=== PATIENT | male | born 1955 | race Caucasian/White ===

== ENCOUNTER → 2017-11-28 | Outpatient (REF) | payer BC ==
[2017-11-28 17:33] LABS: INR 0.97; PARTIAL THROMBOPLASTIN TIME 31.3 SECONDS (26.8-37.9)
[2017-11-28 21:16] LABS: APPEARANCE, URINE MANUAL CLEAR (CLEAR); COLOR, URINE MANUAL LT YELLOW (YELLOW)
[2017-11-28 21:17] LABS: BILIRUBIN, URINE MANUAL NEGATIVE (NEGATIVE); BLOOD URINE MANUAL NEGATIVE (NEGATIVE); GLUCOSE, URINE (UA) MANUAL NEGATIVE (NEGATIVE); KETONE, URINE MANUAL NEGATIVE (NEGATIVE); MICROSCOPIC INDICATED? MAN NO (NO); NITRITE, URINE MANUAL NEGATIVE (NEGATIVE); PROTEIN, URINE MANUAL NEGATIVE (NEGATIVE); UROBILINOGEN, URINE MANUAL NORMAL (NORMAL)
[2017-11-28 21:18] LABS: LEUKOCYTE ESTERASE, URINE MAN NEGATIVE (NEGATIVE)
== END ==
LOC: M LAB REF 16:48
DX: Z01.818 Encounter for other preprocedural examination (principal); M25.551 Pain in right hip
CPT/HCPCS: 85610

== ENCOUNTER → 2018-04-02 | Outpatient (CLI) | payer BC | LOC: M RAD 08:55 | DX: G45.9 Transient cerebral ischemic attack, unspecified (principal) ==

== ENCOUNTER 2020-09-06 10:23 | Emergency (ER) | payer BC, MEDICARE, OTHER ==
[~2020-09-06] VITALS: Ht 175.3 cm; Wt 79.7 kg
[~2020-09-06 10:23] MED LIST: /AUGM875TA OR; CELE1CAP4 OR; COLA100C2 OR; No Historical Meds; PERC5TAB8 OR; PERC7.5T8 OR
[2020-09-06] MEDS ORDERED: NAPR220C14 PO (10:34)
[2020-09-06] MEDS ORDERED: OMEP-221 (10:34)
[2020-09-06 11:37] LABS: BASO # 0.1 10^3/uL (0.0-0.2); BASO % 0.8 % (0.0-1.0); EOS # 0.3 10^3/uL (0.0-0.5); EOS % 4.4 % (0.0-3.0); HEMOGLOBIN 14.5 g/dl (13.5-17.5); LYMPH # 2.5 10^3/uL (1.5-5.0); LYMPH % 33.1 % (24.0-44.0); MEAN CORPUSCULAR HEMOGLOBIN 30.9 pg (27.0-33.0); MEAN CORPUSCULAR HGB CONC 34.5 g/dl (32.0-36.5); MEAN CORPUSCULAR VOLUME 89.6 fl (80.0-96.0); MONO # 0.6 10^3/uL (0.0-0.8); MONO % 7.7 % (0.0-5.0); NEUTROPHILS % 53.6 % (36.0-66.0); PLATELET COUNT, AUTOMATED 171 10^3/uL (150-450); RED BLOOD COUNT 4.69 10^6/uL (4.30-6.10); WHITE BLOOD COUNT 7.5 10^3/uL (4.0-10.0)
[2020-09-06 11:59] LABS: BLOOD UREA NITROGEN 21 MG/DL (7-18); CALCIUM LEVEL 8.6 MG/DL (8.8-10.2); CARBON DIOXIDE LEVEL 26 MEQ/L (21-32); CHLORIDE LEVEL 107 MEQ/L (98-107); CPK CREATINE PHOSPHOKINASE 69 U/L (39-308); CREATININE FOR GFR 1.21 MG/DL (0.70-1.30); GLOMERULAR FILTRATION RATE > 60.0 (>49); GLUCOSE, FASTING 103 MG/DL (70-100); POTASSIUM SERUM 4.4 MEQ/L (3.5-5.1); SODIUM LEVEL 138 MEQ/L (136-145)
--- NOTE | 2020-09-06 12:02 | REP ---
INDICATION: left heel pain. COMPARISON: None. FINDINGS: The joint spaces are symmetric and relatively well maintained with the exception of the 1st metatarsophalangeal joint.. There is no evidence of acute fracture or destructive osseous lesion. Postoperative changes are seen involving the 1st metatarsophalangeal joint. Two fixation pins are seen in the distal 1st metatarsal. Moderate to severe asymmetric 1st metatarsophalangeal joint space narrowing is seen with prominent marginal osteophytosis. IMPRESSION: No acute disease <Electronically signed by Alfie Schultz > 09/06/20 [id number]
--- NOTE | 2020-09-06 12:03 | REP ---
INDICATION: r/o dvt LLE. COMPARISON: None. TECHNIQUE: Multiple ultrasonographic images of the deep venous structures of the left thigh were obtained from the common femoral vein to the popliteal vein along with Doppler interrogation and color flow Doppler images. FINDINGS: There is no abnormal echogenic material seen within any of the visualized deep venous structures that would suggest acute thrombosis. Coaptation is unremarkable throughout. Doppler interrogation shows an expected response to respiratory variability and augmentation. The color flow images show what appears to be a normal vascular pattern throughout. IMPRESSION: There is no ultrasonographic evidence of deep venous thrombosis involving any of the visualized deep venous structures of the left thigh, as described above. <Electronically signed by Alfie Schultz > 09/06/20 1200
[2020-09-06] MEDS ORDERED: LEVO750T13 PO ×2 (13:42→13:55)
[2020-09-06] MEDS ORDERED: BOOSTRIX/ADACEL VACCINE (DIPHTH/PERTUSS/ACELL/TETANUS) 0.5ML SYR IM ONE (13:45)
[2020-09-06 13:50] VITALS: BP 149/86
== END 2020-09-06 13:57 | disposition home or self-care (01) ==
LOC: M ED 10:23
DX: L02.416 Cutaneous abscess of left lower limb (principal); S86.912A Strain of unspecified muscle(s) and tendon(s) at lower leg level, left leg, initial encounter; S91.342A Puncture wound with foreign body, left foot, initial encounter; X58.XXXA Exposure to other specified factors, initial encounter; Y92.89 Other specified places as the place of occurrence of the external cause; K21.9 Gastro-esophageal reflux disease without esophagitis; Z79.899 Other long term (current) drug therapy; Z88.1 Allergy status to other antibiotic agents; Z88.2 Allergy status to sulfonamides; F12.20 Cannabis dependence, uncomplicated; Z87.891 Personal history of nicotine dependence

== ENCOUNTER → 2023-09-05 | Outpatient (CLI) | payer MEDICARE, OTHER ==
[~2023-09-05] MED LIST changes: +LEVO1TAB40 PO; +NAPR220C14 PO; +OMEP40CA5
== END ==
LOC: M RAD 10:24
PROVIDERS: ATTEND Internal Medicine
DX: I73.9 Peripheral vascular disease, unspecified (principal)

== ENCOUNTER → 2023-10-09 | Outpatient (CLI) | payer MEDICARE | LOC: M RAD 10:14 | PROVIDERS: ATTEND Internal Medicine | DX: R91.1 Solitary pulmonary nodule (principal); J43.9 Emphysema, unspecified; K44.9 Diaphragmatic hernia without obstruction or gangrene; I25.84 Coronary atherosclerosis due to calcified coronary lesion ==

== ENCOUNTER 2023-12-26 07:34 | Day surgery (SDC) | payer MEDICARE ==
[~2023-12-26] VITALS: Ht 175.3 cm; Wt 70.1 kg
[~2023-12-26 07:34] MED LIST changes: +CIAL5TAB PO; +OMEP40CA4 PO; +ROSU10TA61 PO
[2023-12-26] MEDS: NS 1,000 ML IV ONE (07:54)
[2023-12-26 09:40] VITALS: TEMP 98
[2023-12-26 10:05] VITALS: BP 127/74; O2SAT 95
== END 2023-12-26 10:20 | disposition home or self-care (01) ==
LOC: M OPP 07:34
PROVIDERS: ATTEND Internal Medicine Gastroenterology
DX: Z12.11 Encounter for screening for malignant neoplasm of colon (principal); Z12.12 Encounter for screening for malignant neoplasm of rectum; C18.4 Malignant neoplasm of transverse colon; K57.30 Diverticulosis of large intestine without perforation or abscess without bleeding; K64.8 Other hemorrhoids; K64.4 Residual hemorrhoidal skin tags; K21.9 Gastro-esophageal reflux disease without esophagitis; N40.0 Benign prostatic hyperplasia without lower urinary tract symptoms; Z86.73 Personal history of transient ischemic attack (TIA), and cerebral infarction without residual deficits; Z79.899 Other long term (current) drug therapy; E78.00 Pure hypercholesterolemia, unspecified; Z90.49 Acquired absence of other specified parts of digestive tract; Z88.2 Allergy status to sulfonamides

== ENCOUNTER → 2024-01-03 | Outpatient (REF) | payer MEDICARE | LOC: M LAB REF 12:30 | PROVIDERS: ATTEND Internal Medicine | DX: N40.1 Benign prostatic hyperplasia with lower urinary tract symptoms (principal); C18.9 Malignant neoplasm of colon, unspecified ==

== ENCOUNTER → 2024-01-12 | Outpatient (CLI) | payer MEDICARE ==
[~2024-01-12] MED LIST changes: +GASTROGRAFIN SOLUTION 30ML ONE; +ISOVUE-370 76% 100ML VIAL ONE
== END ==
LOC: M PLAIMG 08:10
PROVIDERS: ATTEND Internal Medicine
DX: C18.9 Malignant neoplasm of colon, unspecified (principal); K57.30 Diverticulosis of large intestine without perforation or abscess without bleeding; Z96.641 Presence of right artificial hip joint
CPT/HCPCS: 74178; Q9963; Q9967

== ENCOUNTER 2024-01-22 05:48 | Inpatient (IN) | payer MEDICARE ==
[~2024-01-22] VITALS: Ht 175.3 cm; Wt 70.6 kg
[2024-01-22] VITALS (8 sets, daily range): BP systolic 139–144; BP diastolic 80–88; TEMP 97.7–98.7; O2SAT 92–97
[~2024-01-22 05:48] MED LIST changes: -GASTROGRAFIN SOLUTION 30ML ONE; -ISOVUE-370 76% 100ML VIAL ONE
[2024-01-22] MEDS: LR 1,000 ML IV SCH (07:13)
[2024-01-22] MEDS ORDERED: ONDANSETRON 4MG 2ML VIAL As Ordered ONE (07:14)
[2024-01-22] MEDS ORDERED: ROCURONIUM BROMIDE 50MG/5ML VIAL As Ordered ONE (07:14)
[2024-01-22] MEDS ORDERED: LIDOCAINE 2% 100MG/5ML SDV (FOR ANES.) As Ordered ONE (07:14)
[2024-01-22] MEDS ORDERED: propofoL 200 MG/20 ML VIAL As Ordered ONE (07:14)
[2024-01-22] MEDS ORDERED: MIDAZOLAM INJ 2MG/2ML VIAL As Ordered ONE (07:15)
[2024-01-22] MEDS ORDERED: fentaNYL 100 MCG/2 ML INJECTION As Ordered ONE (07:15)
[2024-01-22] MEDS: ceFAZolin SOD 2 GM in IV 1 EA IV ONE (07:18)
[2024-01-22] MEDS ORDERED: METR-265 PO (07:22)
[2024-01-22] MEDS ORDERED: NEOM500T PO (07:22)
[2024-01-22] MEDS ORDERED: HOME MED LIST COMPLETE! XX SCH (07:25)
[2024-01-22] MEDS: metroNIDAZOLE 500 MG in IV 1 EA IV ONE (07:31)
[2024-01-22] MEDS ORDERED: PHENYLephrine 500MCG 5ML (100MCG/ML) SYRINGE As Ordered ONE (07:48)
[2024-01-22] MEDS ORDERED: ACETAMINOPHEN 1000MG 100ML IV BAG As Ordered ONE (08:04)
[2024-01-22] MEDS ORDERED: HYDROmorphone HCL 2MG/ML 1ML VIAL As Ordered ONE (08:23)
[2024-01-22] MEDS ORDERED: LABETALOL 100MG/20ML VIAL As Ordered ONE (10:01)
[2024-01-22] MEDS: fentaNYL 100 MCG/2 ML INJECTION IV PRN (11:21)
[2024-01-22] MEDS: ONDANSETRON 4MG 2ML VIAL IV PRN ×2 (11:21→17:14)
[2024-01-22] MEDS: oxyCODONE 5MG TAB PO PRN (11:38)
[2024-01-22] MEDS ORDERED: NORCO, ANEXSIA 5/325MG TABLET (HYDROcodone/ACETAMINOPHEN) PO PRN (11:40)
[2024-01-22] MEDS ORDERED: MORPHINE 2 MG/ML 1ML VIAL IV PRN (11:40)
[2024-01-22] MEDS ORDERED: dexmedeTOMIDine (4MCG/ML)200MCG/50ML BTL (PRECEDEX) As Ordered ONE (12:40)
[2024-01-22] MEDS: HYDROMORPHONE HCL 0.5 MG/ 0.5 ML SYRINGE IV PRN (13:35)
[2024-01-22] MEDS: PIPERACILLIN/TAZOBACTAM SOD 3.375 GM in D5W MINI-BAG PLUS 50 ML IV SCH (13:51)
[2024-01-22] MEDS: NS 1,000 ML IV SCH (14:38)
[2024-01-22] MEDS: KETOROLAC 30 MG/ML 1ML VIAL IV PRN (17:14)
[2024-01-22] MEDS: SENOKOT S TAB PO SCH (20:36)
[2024-01-22] MEDS: NORCO, ANEXSIA 5/325MG TABLET (HYDROcodone/ACETAMINOPHEN) PO PRN (20:51)
[2024-01-23] VITALS: BP 151/76; TEMP 98.1; O2SAT 93
[2024-01-23 04:17] VITALS: BP 122/74; TEMP 98.1; O2SAT 95
[2024-01-23 06:10] LABS: HEMATOCRIT 37.6 % (42.0-52.0); HEMOGLOBIN 13.6 g/dl (13.5-17.5); MEAN CORPUSCULAR HEMOGLOBIN 34.5 pg (27.0-33.0); MEAN CORPUSCULAR HGB CONC 36.2 g/dl (32.0-36.5); MEAN CORPUSCULAR VOLUME 95.4 fl (80.0-96.0); PLATELET COUNT, AUTOMATED 144 10^3/uL (150-450); RED BLOOD COUNT 3.94 10^6/uL (4.30-6.10); WHITE BLOOD COUNT 11.3 10^3/uL (4.0-10.0)
[2024-01-23 06:39] LABS: BLOOD UREA NITROGEN 14 MG/DL (9-23); CALCIUM LEVEL 7.9 MG/DL (8.3-10.6); CARBON DIOXIDE LEVEL 23 MMOL/L (20-31); CHLORIDE LEVEL 108 MMOL/L (98-107); CREATININE FOR GFR 0.96 MG/DL (0.70-1.30); GLOMERULAR FILTRATION RATE > 60.0 (>42); GLUCOSE, FASTING 82 MG/DL (74-106); POTASSIUM SERUM 3.8 MMOL/L (3.5-5.1); SODIUM LEVEL 138 MMOL/L (136-145)
[2024-01-23 08:00] VITALS: BP 142/79; TEMP 97.7; O2SAT 94
[2024-01-23] MEDS: PANTOPRAZOLE 40MG TAB (PROTONIX) PO SCH (08:28)
[2024-01-23] MEDS: ENOXAPARIN 40MG/0.4ML SYRINGE (J1650 PER 10MG) SC SCH (08:32)
[2024-01-23 12:00] VITALS: BP 121/72; TEMP 97.7; O2SAT 93
[2024-01-23 16:00] VITALS: BP 128/83; TEMP 97.7; O2SAT 98
[2024-01-23 20:00] VITALS: BP 131/81; TEMP 97.7; O2SAT 94
[2024-01-23] MEDS: RAMELTEON 8 MG TAB (ROZEREM) PO ONE (20:44)
[2024-01-24] VITALS (8 sets, daily range): BP systolic 124–178; BP diastolic 78–112; TEMP 97–98.1; O2SAT 92–95
[2024-01-24] MEDS: PROMETHAZINE 25MG/ML 1ML VIAL IV ONE (04:48)
[2024-01-24 06:38] LABS: BLOOD UREA NITROGEN 11 MG/DL (9-23); CALCIUM LEVEL 8.5 MG/DL (8.3-10.6); CARBON DIOXIDE LEVEL 22 MMOL/L (20-31); CHLORIDE LEVEL 107 MMOL/L (98-107); CREATININE FOR GFR 0.73 MG/DL (0.70-1.30); GLOMERULAR FILTRATION RATE > 60.0 (>42); GLUCOSE, FASTING 108 MG/DL (74-106); POTASSIUM SERUM 3.8 MMOL/L (3.5-5.1); SODIUM LEVEL 139 MMOL/L (136-145)
[2024-01-24 06:43] LABS: HEMATOCRIT 47.4 % (42.0-52.0); MEAN CORPUSCULAR HEMOGLOBIN 34.4 pg (27.0-33.0); MEAN CORPUSCULAR HGB CONC 36.5 g/dl (32.0-36.5); MEAN CORPUSCULAR VOLUME 94.2 fl (80.0-96.0); PLATELET COUNT, AUTOMATED 139 10^3/uL (150-450); RED BLOOD COUNT 5.03 10^6/uL (4.30-6.10); WHITE BLOOD COUNT 11.1 10^3/uL (4.0-10.0)
[2024-01-24 09:33] LABS: MAGNESIUM LEVEL 1.8 MG/DL (1.8-2.4)
[2024-01-24] MEDS: FUROSEMIDE 40MG/4ML VIAL IV ONE (16:37)
[2024-01-24] MEDS: **hydrALAZINE HCL** 25 MG TAB PO PRN (18:23)
[2024-01-24] MEDS: ROSUVASTATIN 10 MG TAB (CRESTOR) PO SCH (21:16)
[2024-01-25 05:15] VITALS: BP 146/91; TEMP 97.9; O2SAT 93
[2024-01-25 06:32] LABS: HEMATOCRIT 47.6 % (42.0-52.0); HEMOGLOBIN 17.6 g/dl (13.5-17.5); MEAN CORPUSCULAR HEMOGLOBIN 33.8 pg (27.0-33.0); MEAN CORPUSCULAR VOLUME 91.5 fl (80.0-96.0); PLATELET COUNT, AUTOMATED 196 10^3/uL (150-450); WHITE BLOOD COUNT 12.8 10^3/uL (4.0-10.0)
[2024-01-25 06:45] LABS: BLOOD UREA NITROGEN 27 MG/DL (9-23); CALCIUM LEVEL 8.6 MG/DL (8.3-10.6); CARBON DIOXIDE LEVEL 24 MMOL/L (20-31); CHLORIDE LEVEL 104 MMOL/L (98-107); CREATININE FOR GFR 1.13 MG/DL (0.70-1.30); GLOMERULAR FILTRATION RATE > 60.0 (>42); GLUCOSE, FASTING 111 MG/DL (74-106); POTASSIUM SERUM 3.8 MMOL/L (3.5-5.1); SODIUM LEVEL 136 MMOL/L (136-145)
[2024-01-25] MEDS: LR 1,000 ML IV ONE (06:53)
[2024-01-25 08:20] LABS: HEMOGLOBIN 17.3 g/dl (13.5-17.5)
[2024-01-25 12:00] VITALS: BP 121/82; TEMP 97.9; O2SAT 93
[2024-01-25 19:52] VITALS: BP 148/94; TEMP 97.9; O2SAT 93
[2024-01-26 05:53] VITALS: BP 147/94; TEMP 97.9; O2SAT 93
[2024-01-26 08:00] VITALS: BP 147/95
[2024-01-26 09:56] LABS: BLOOD UREA NITROGEN 34 MG/DL (9-23); CALCIUM LEVEL 9.1 MG/DL (8.3-10.6); CARBON DIOXIDE LEVEL 23 MMOL/L (20-31); CHLORIDE LEVEL 104 MMOL/L (98-107); CREATININE FOR GFR 1.02 MG/DL (0.70-1.30); GLOMERULAR FILTRATION RATE > 60.0 (>42); GLUCOSE, FASTING 114 MG/DL (74-106); POTASSIUM SERUM 3.6 MMOL/L (3.5-5.1); SODIUM LEVEL 139 MMOL/L (136-145)
[2024-01-26 10:16] LABS: HEMATOCRIT 49.1 % (42.0-52.0); HEMOGLOBIN 18.1 g/dl (13.5-17.5); MEAN CORPUSCULAR HEMOGLOBIN 34.1 pg (27.0-33.0); MEAN CORPUSCULAR VOLUME 92.5 fl (80.0-96.0); PLATELET COUNT, AUTOMATED 213 10^3/uL (150-450); RED BLOOD COUNT 5.31 10^6/uL (4.30-6.10); WHITE BLOOD COUNT 10.6 10^3/uL (4.0-10.0)
[2024-01-26 10:51] LABS: MEAN CORPUSCULAR HGB CONC 36.9 g/dl (32.0-36.5)
[2024-01-26 12:00] VITALS: BP 148/94; TEMP 97.7; O2SAT 98
[2024-01-26] MEDS ORDERED: HYDR-3715 PO (12:41)
[2024-01-26] MEDS ORDERED: AMLO1TAB25 PO (12:41)
== END 2024-01-26 15:30 | disposition home or self-care (01) | DRG 330 ==
LOC: M OR 05:48 → M MSPAV 14:03
PROVIDERS: ADMIT Surgery; ATTEND Surgery
PROC: 8E0W4CZ Robotic Assisted Procedure of Trunk Region, Percutaneous Endoscopic Approach (ICD-10-PCS; 2024-01-22)
PROC: 0DBF4ZZ Excision of Right Large Intestine, Percutaneous Endoscopic Approach (ICD-10-PCS; principal; 2024-01-22 07:30)
DX: C18.3 Malignant neoplasm of hepatic flexure (principal); C77.2 Secondary and unspecified malignant neoplasm of intra-abdominal lymph nodes; K21.9 Gastro-esophageal reflux disease without esophagitis; E78.5 Hyperlipidemia, unspecified; N40.0 Benign prostatic hyperplasia without lower urinary tract symptoms; D75.1 Secondary polycythemia; Z90.49 Acquired absence of other specified parts of digestive tract; Z79.899 Other long term (current) drug therapy

== ENCOUNTER → 2024-02-21 | Outpatient (CLI) | payer MEDICARE ==
[~2024-02-21] MED LIST changes: +AMLO1TAB25 PO; +HYDR-3715 PO; +METR-265 PO; +NEOM500T PO
== END ==
LOC: M IRPRO 09:08
PROVIDERS: ATTEND Internal Medicine Hematology & Oncology
DX: C18.9 Malignant neoplasm of colon, unspecified (principal)

== ENCOUNTER → 2024-03-05 | Outpatient (CLI) | payer MEDICARE ==
[~2024-03-05] MED LIST changes: +LIDOCAINE 1% MDV 20ML VIAL As Ordered ONE; +ONDA-84 PO; +PROC10TA5 PO; +ceFAZolin 2 GM/D5W 50 ML IV BAG As Ordered ONE
[2024-03-05 15:10] VITALS: TEMP 98.1
[2024-03-05 17:21] VITALS: BP 127/67; O2SAT 99
== END ==
LOC: M IRPRO 14:54
PROVIDERS: ATTEND Internal Medicine Hematology & Oncology
DX: C18.9 Malignant neoplasm of colon, unspecified (principal)
CPT/HCPCS: 36561; C1769; J0690

== ENCOUNTER → 2024-04-11 | Outpatient (CLI) | payer MEDICARE ==
[~2024-04-11] MED LIST changes: +CLAR10TA7 PO; +LIDO30CR18 TOP; -LIDOCAINE 1% MDV 20ML VIAL As Ordered ONE; +MAGICMW PO; -ceFAZolin 2 GM/D5W 50 ML IV BAG As Ordered ONE
== END ==
LOC: M RAD 10:12
PROVIDERS: ATTEND Internal Medicine Hematology & Oncology
DX: D69.6 Thrombocytopenia, unspecified (principal); C18.9 Malignant neoplasm of colon, unspecified

== ENCOUNTER → 2024-06-06 | Outpatient (REF) | payer MEDICARE ==
[~2024-06-06] MED LIST changes: +PREG50CA PO
[2024-06-06 17:49] LABS: THYROID STIMULATING HORMONE 1.201 uIU/ML (0.55-4.78)
[2024-06-06 17:50] LABS: ALBUMIN 3.6 G/DL (3.2-5.2); ALKALINE PHOSPHATASE 196 U/L (46-116); ALT/SGPT 24 U/L (7.0-40); AST/SGOT 23 U/L (<34); BILIRUBIN,TOTAL 0.5 MG/DL (0.3-1.2); BLOOD UREA NITROGEN 10 MG/DL (9-23); CALCIUM LEVEL 9.4 MG/DL (8.3-10.6); CARBON DIOXIDE LEVEL 27 MMOL/L (20-31); CHLORIDE LEVEL 109 MMOL/L (98-107); CHOLESTEROL LEVEL 135 MG/DL (<200); CHOLESTEROL RISK RATIO 2.86 (<5); CREATININE FOR GFR 0.94 MG/DL (0.70-1.30); GLOMERULAR FILTRATION RATE > 60.0 (>42); GLUCOSE, FASTING 100 MG/DL (74-106); HDL CHOLESTEROL 47.2 MG/DL (>40); HEMATOCRIT 40.2 % (42.0-52.0); HEMOGLOBIN 13.2 g/dl (13.5-17.5); MEAN CORPUSCULAR HEMOGLOBIN 32.8 pg (27.0-33.0); MEAN CORPUSCULAR HGB CONC 32.8 g/dl (32.0-36.5); NON-HDL-C 87.8 MG/DL; POTASSIUM SERUM 3.8 MMOL/L (3.5-5.1); RED BLOOD COUNT 4.02 10^6/uL (4.30-6.10); SODIUM LEVEL 141 MMOL/L (136-145); TOTAL PROTEIN 6.8 G/DL (5.7-8.2); TRIGLYCERIDES LEVEL 94 MG/DL (<150); WHITE BLOOD COUNT 6.5 10^3/uL (4.0-10.0)
[2024-06-06 17:52] LABS: FREE T4 1.24 NG/DL (0.89-1.76)
[2024-06-06 18:05] LABS: HEMOGLOBIN A1c 5.3 % (4.0-6.0)
[2024-06-06 18:28] LABS: PLATELET COUNT, AUTOMATED 49 10^3/uL (150-450)
== END ==
LOC: M SFHCADAM 10:55
PROVIDERS: ATTEND Family Medicine
DX: E78.5 Hyperlipidemia, unspecified (principal); C18.9 Malignant neoplasm of colon, unspecified; Z13.1 Encounter for screening for diabetes mellitus

== ENCOUNTER → 2024-07-09 | Outpatient (CLI) | payer MEDICARE | LOC: M ONCM 07:34 | PROVIDERS: ATTEND Dietitian, Registered | DX: C18.9 Malignant neoplasm of colon, unspecified (principal); Z71.3 Dietary counseling and surveillance; Z68.21 Body mass index [BMI] 21.0-21.9, adult ==

== ENCOUNTER → 2024-08-20 | Outpatient (CLI) | payer MEDICARE ==
[~2024-08-20] MED LIST changes: +LEVO1TAB39 PO
== END ==
LOC: M RAD 14:57
PROVIDERS: ATTEND Internal Medicine Medical Oncology
DX: C18.9 Malignant neoplasm of colon, unspecified (principal)

== ENCOUNTER → 2024-09-06 | Outpatient (REF) | payer MEDICARE ==
[2024-09-06 17:42] LABS: APPEARANCE, URINE HAZY (CLEAR); BACTERIA, URINE AUTO NEGATIVE (NEGATIVE); BILIRUBIN, URINE AUTO NEGATIVE (NEGATIVE); BLOOD, URINE BLOOD NEGATIVE (NEGATIVE); COLOR, URINE AMBER (YELLOW); GLUCOSE, URINE (UA) AUTO NEGATIVE (NEGATIVE); KETONE, URINE AUTO NEGATIVE (NEGATIVE); LEUKOCYTE ESTERASE, URINE AUTO NEGATIVE (NEGATIVE); MUCUS, URINE SMALL (NEGATIVE); NITRITE, URINE AUTO NEGATIVE (NEGATIVE); PROTEIN, URINE AUTO NEGATIVE (NEGATIVE); RBC, URINE AUTO 0 /HPF (0-3); SPECIFIC GRAVITY URINE AUTO 1.025 (1.002-1.035); SQUAMOUS EPITHELIAL CELL UR AU 0 /HPF (0-6); UROBILINOGEN, URINE AUTO 0.2 mg/dL (0.0-2.0); WBC, URINE AUTO 2 /HPF (0-3)
== END ==
LOC: M SFHCADAM 13:56
PROVIDERS: ATTEND Family Medicine
DX: R30.0 Dysuria (principal)

== ENCOUNTER → 2024-09-17 | Outpatient (CLI) | payer MEDICARE ==
[~2024-09-17] MED LIST changes: +TAMS1CAP17
== END ==
LOC: M ONCM 14:16
PROVIDERS: ATTEND Dietitian, Registered
DX: C18.9 Malignant neoplasm of colon, unspecified (principal); Z68.20 Body mass index [BMI] 20.0-20.9, adult; Z71.3 Dietary counseling and surveillance

== ENCOUNTER → 2024-09-24 | Outpatient (CLI) | payer MEDICARE ==
[~2024-09-24] MED LIST changes: +ISOVUE-370 76% 100ML VIAL ONE
== END ==
LOC: M PLAIMG 07:55
PROVIDERS: ATTEND Internal Medicine Medical Oncology
DX: C18.9 Malignant neoplasm of colon, unspecified (principal); R16.1 Splenomegaly, not elsewhere classified; Z90.49 Acquired absence of other specified parts of digestive tract
CPT/HCPCS: 71260; 74177; Q9967

== ENCOUNTER → 2024-10-15 | Outpatient (CLI) | payer MEDICARE ==
[~2024-10-15] MED LIST changes: -ISOVUE-370 76% 100ML VIAL ONE
== END ==
LOC: M ONCM 07:20
PROVIDERS: ATTEND Dietitian, Registered
DX: C18.9 Malignant neoplasm of colon, unspecified (principal); Z71.3 Dietary counseling and surveillance; Z68.20 Body mass index [BMI] 20.0-20.9, adult

== ENCOUNTER → 2024-10-29 | Outpatient (CLI) | payer MEDICARE | LOC: M ONCM 08:20 | PROVIDERS: ATTEND Dietitian, Registered | DX: C18.9 Malignant neoplasm of colon, unspecified (principal); Z71.3 Dietary counseling and surveillance; Z68.20 Body mass index [BMI] 20.0-20.9, adult ==

== ENCOUNTER → 2024-12-19 | Outpatient (CLI) | payer MEDICARE ==
[~2024-12-19] MED LIST changes: +ISOVUE-370 76% 100ML VIAL As Ordered ONE; -PREG50CA PO; +PREG50CA87 PO
== END ==
LOC: M RAD 10:03
PROVIDERS: ATTEND Internal Medicine Medical Oncology
DX: C18.9 Malignant neoplasm of colon, unspecified (principal); R16.1 Splenomegaly, not elsewhere classified
CPT/HCPCS: 74160; Q9967

== ENCOUNTER → 2025-03-24 | Outpatient (CLI) | payer MEDICARE ==
[~2025-03-24] MED LIST changes: +ISOVUE-370 76% 100 ML VIAL As Ordered ONE; -ISOVUE-370 76% 100ML VIAL As Ordered ONE
== END ==
LOC: M RAD 10:58
PROVIDERS: ATTEND Specialist
DX: C18.9 Malignant neoplasm of colon, unspecified (principal); R16.1 Splenomegaly, not elsewhere classified; J44.9 Chronic obstructive pulmonary disease, unspecified; R91.1 Solitary pulmonary nodule; K44.9 Diaphragmatic hernia without obstruction or gangrene; K57.30 Diverticulosis of large intestine without perforation or abscess without bleeding
CPT/HCPCS: 71260; 74177; Q9967

== ENCOUNTER → 2025-05-10 | Outpatient (CLI) | payer MEDICARE ==
[~2025-05-10] VITALS: Ht 175.3 cm; Wt 67.7 kg
[~2025-05-10] MED LIST changes: -ISOVUE-370 76% 100 ML VIAL As Ordered ONE
[2025-05-10 09:35] VITALS: TEMP 97.2
[2025-05-10] MEDS: NS (Normal Saline) 0.9% 1,000 ML IV SCH (09:35)
[2025-05-10] MEDS: ceFAZolin SODIUM 2 GM in DEXTROSE 5% (D5W) ADV/MINI-BAG 50 ML IV ONE (10:10)
[2025-05-10] MEDS: MIDAZOLAM INJ 2 MG/2 ML VIAL IV PRN (10:12)
[2025-05-10] MEDS: LIDOCAINE 1% MDV 20 ML VIAL SC SCH (10:13)
[2025-05-10 10:50] VITALS: BP 148/70; O2SAT 97
== END ==
LOC: M IRPRO 09:24
PROVIDERS: ATTEND Internal Medicine Medical Oncology
DX: C18.9 Malignant neoplasm of colon, unspecified (principal)
CPT/HCPCS: 36590; 99152; J0688; J2250; J3010

== ENCOUNTER → 2025-07-30 | Outpatient (REF) | payer MEDICARE ==
[~2025-07-30] MED LIST changes: +ACET1TAB55 PO; -ROSU10TA61 PO; +ROSU10TA90 PO
== END ==
LOC: M SFHCADAM 10:41
PROVIDERS: ATTEND Nurse Practitioner Family
DX: B35.1 Tinea unguium (principal)